=== PATIENT | female | born 1950 | race Caucasian/White ===

== ENCOUNTER 2019-10-06 10:51 | Emergency (ER) | payer MEDICARE, OTHER ==
[~2019-10-06] VITALS: Ht 152.4 cm; Wt 58.5 kg
[~2019-10-06 10:51] MED LIST: ALPR.5 PO; Xanax Xr2 MG PO
[2019-10-06] MEDS ORDERED: Primidone50 MG PO (11:47)
[2019-10-06] MEDS ORDERED: CITA20 PO (11:48)
[2019-10-06] MEDS ORDERED: THERA1 EACH PO (11:48)
[2019-10-06] MEDS ORDERED: CALCIUM 500 +1 EAC2 PO (11:48)
[2019-10-06 13:04] LABS: BASOPHILS ABSOLUTE AUTO 0.06 K/mm3 (0.00-0.23); BASOPHILS PERCENT AUTO 1 % (0-2); EOSINOPHILS PERCENT AUTO 1 % (0-6); Hematocrit 44.6 % (33.0-51.0); Hemoglobin 14.8 g/dL (11.5-16.0); IMMATURE GRAN ABSOLUTE AUTO 0.03 K/mm3 (0.00-0.10); IMMATURE GRAN PERCENT AUTO 0 % (0-1); LYMPHOCYTES ABSOLUTE AUTO 2.75 K/mm3 (0.84-5.20); LYMPHOCYTES PERCENT AUTO 29 % (21-46); MONOCYTES ABSOLUTE AUTO 0.62 K/mm3 (0.16-1.47); MONOCYTES PERCENT AUTO 6 % (4-13); Mean Corpuscular HGB 32.4 pg (26.0-34.0); Mean Corpuscular HGB Conc 33.2 g/dL (31.5-36.5); Mean Corpuscular Volume 98 fL (80-100); Mean Platelet Volume 9.7 fL (9.1-12.4); NEUTROPHILS PERCENT AUTO 63 % (41-73); Platelet Count 283 K/mm3 (150-400); RDW Coefficient Variation 12.2 % (11.7-14.2); RDW Standard Deviation 44.2 fL (35.1-46.3); Red Blood Cell Count 4.57 M/mm3 (3.80-5.20); White Blood Cell Count 9.66 K/mm3 (4.00-11.30)
[2019-10-06 13:33] LABS: Alanine Aminotransfer (ALT/SGP 21 U/L (12-78); Albumin, Blood 3.7 g/dL (3.4-5.0); Albumin/Globulin Ratio 1.1 (0.8-1.8); Alk Phos 114 U/L (50-136); Anion Gap 4 mmol/L (6-16); Aspartate Aminotrans (AST/SGOT 12 U/L (12-37); Bilirubin, Total 0.3 mg/dL (0.1-1.0); Blood Urea Nitrogen 10 mg/dL (8-24); Bun/Creatinine Ratio 17.7 (12.0-20.0); CO2, Blood 28 mmol/L (21-32); Chloride, Blood 108 mmol/L (98-108); Creatinine, Blood 0.56 mg/dL (0.40-1.00); Ethanol (Alcohol), Blood, Med <3 mg/dL; Globulin, Blood 3.4 g/dL (2.2-4.0); Glomerular Filtration Rate >60 (60-); Glucose, Blood 91 mg/dL (70-99); Magnesium, Blood 2.2 mg/dL (1.6-2.4); Potassium, Blood 3.8 mmol/L (3.5-5.5); Sodium, Blood 140 mmol/L (136-145); Total Protein, Blood 7.1 g/dL (6.4-8.2)
[2019-10-06 13:36] LABS: U Amphetamine Screen Not Detected; U Barbituate Screen Not Detected; U Benzodiazapine Screen DETECTED; U Buprenorphine Screen Not Detected; U Cannabinoids Screen DETECTED; U Cocaine Screen Not Detected; U Methadone Screen Not Detected; U Methamphetamine Screen Not Detected; U Opiates Screen Not Detected; U Oxycodone Screen Not Detected; U Phencyclidine Screen Not Detected; U Propoxyphene Screen Not Detected
[2019-10-06 14:07] LABS: Thyroid Stimulating Hormone 0.815 uIU/mL (0.360-4.800)
[2019-10-06] MEDS ORDERED: Ativan1 MG SL (14:43)
== END 2019-10-06 14:59 | disposition home or self-care (01) ==
LOC: ER 10:51
PROVIDERS: Emergency Medicine
DX: R25.1 Tremor, unspecified (principal); F41.9 Anxiety disorder, unspecified; Z88.5 Allergy status to narcotic agent; Z88.6 Allergy status to analgesic agent; Z88.8 Allergy status to other drugs, medicaments and biological substances; Z79.899 Other long term (current) drug therapy; F17.200 Nicotine dependence, unspecified, uncomplicated
CPT/HCPCS: 36415; 80053; 83735; 84443; 85025; 99283; G0480

== ENCOUNTER 2019-10-14 12:11 | Emergency (ER) | payer MEDICARE, OTHER ==
[~2019-10-14] VITALS: Ht 152.4 cm; Wt 58.5 kg
[~2019-10-14 12:11] MED LIST changes: +Ativan1 MG SL; +CALCIUM 500 +1 EAC2 PO; +CITA20 PO; +Primidone50 MG PO; +THERA1 EACH PO
[2019-10-14 14:00] LABS: Calcium, Ionized (POC) 1.11 mmol/L (1.10-1.46); Chloride (POC) 107 mmol/L (98-108); Creatinine (POC) 0.7 mg/dL (0.6-1.0); Glucose (ISTAT POC) 93 mg/dL (70-99); Hemoglobin (POC) 13.3 g/dL (12.0-16.0); Potassium (POC) 3.3 mmol/L (3.5-5.5); Sodium (POC) 142 mmol/L (135-148); Total CO2 (POC) 27 mmol/L (21-32)
== END 2019-10-14 14:22 | disposition home or self-care (01) ==
LOC: ER 12:11
PROVIDERS: Emergency Medicine
DX: G25.1 Drug-induced tremor (principal); T42.4X5A Adverse effect of benzodiazepines, initial encounter; F41.0 Panic disorder [episodic paroxysmal anxiety]; F17.200 Nicotine dependence, unspecified, uncomplicated; Z88.6 Allergy status to analgesic agent; Z88.5 Allergy status to narcotic agent; Z88.8 Allergy status to other drugs, medicaments and biological substances; Z79.899 Other long term (current) drug therapy
CPT/HCPCS: 80047; 85014; 96374; 99284-25; J3360; J7030

== ENCOUNTER → 2020-01-22 | Outpatient (CLI) | payer MEDICARE, OTHER ==
[2020-01-22 15:05] LABS: Blood Urea Nitrogen 10 mg/dL (8-24); Creatinine, Blood 0.65 mg/dL (0.40-1.00); Glomerular Filtration Rate >60 (60-)
== END | disposition home or self-care (01) ==
LOC: LAB SHORT 13:36 → LAB 13:36
PROVIDERS: Hospitalist
DX: R25.1 Tremor, unspecified (principal)
CPT/HCPCS: 82565; 84520

== ENCOUNTER 2020-11-13 08:31 | Emergency (ER) | payer MEDICARE ==
[~2020-11-13] VITALS: Ht 152.4 cm; Wt 63.5 kg
[2020-11-13] MEDS ORDERED: ESCI10 PO (08:44)
[2020-11-13 10:10] LABS: BASOPHILS ABSOLUTE AUTO 0.09 K/mm3 (0.00-0.23); BASOPHILS PERCENT AUTO 1 % (0-2); EOSINOPHILS ABSOLUTE AUTO 0.44 K/mm3 (0.00-0.68); EOSINOPHILS PERCENT AUTO 5 % (0-6); Hematocrit 43.7 % (33.0-51.0); Hemoglobin 14.6 g/dL (11.5-16.0); IMMATURE GRAN ABSOLUTE AUTO 0.01 K/mm3 (0.00-0.10); IMMATURE GRAN PERCENT AUTO 0 % (0-1); LYMPHOCYTES ABSOLUTE AUTO 2.14 K/mm3 (0.84-5.20); LYMPHOCYTES PERCENT AUTO 26 % (21-46); MONOCYTES ABSOLUTE AUTO 0.51 K/mm3 (0.16-1.47); MONOCYTES PERCENT AUTO 6 % (4-13); Mean Corpuscular HGB 33.6 pg (26.0-34.0); Mean Corpuscular HGB Conc 33.4 g/dL (31.5-36.5); Mean Corpuscular Volume 101 fL (80-100); Mean Platelet Volume 9.3 fL (9.1-12.4); NEUTROPHILS PERCENT AUTO 61 % (41-73); Platelet Count 238 K/mm3 (150-400); RDW Coefficient Variation 12.5 % (11.7-14.2); Red Blood Cell Count 4.35 M/mm3 (3.80-5.20); White Blood Cell Count 8.19 K/mm3 (4.00-11.30)
[2020-11-13 10:29] LABS: Alanine Aminotransfer (ALT/SGP 24 U/L (12-78); Albumin, Blood 3.7 g/dL (3.4-5.0); Albumin/Globulin Ratio 1.2 (0.8-1.8); Alk Phos 95 U/L (50-136); Anion Gap 2 mmol/L (6-16); Aspartate Aminotrans (AST/SGOT 14 U/L (12-37); Bilirubin, Total 0.3 mg/dL (0.1-1.0); Blood Urea Nitrogen 9 mg/dL (8-24); Bun/Creatinine Ratio 13.6 (12.0-20.0); CO2, Blood 30 mmol/L (21-32); Calcium, Blood 8.8 mg/dL (8.5-10.1); Chloride, Blood 111 mmol/L (98-108); Creatinine, Blood 0.66 mg/dL (0.40-1.00); Globulin, Blood 3.2 g/dL (2.2-4.0); Glomerular Filtration Rate >60 (60-); Glucose, Blood 111 mg/dL (70-99); Potassium, Blood 4.2 mmol/L (3.5-5.5); Sodium, Blood 143 mmol/L (136-145); Total Protein, Blood 6.9 g/dL (6.4-8.2)
[2020-11-13 10:32] LABS: Thyroid Stimulating Hormone 0.872 uIU/mL (0.360-4.800)
== END 2020-11-13 11:37 | disposition home or self-care (01) ==
LOC: ER 08:31
PROVIDERS: Emergency Medicine
DX: R25.1 Tremor, unspecified (principal); F41.9 Anxiety disorder, unspecified; F17.210 Nicotine dependence, cigarettes, uncomplicated; Z79.899 Other long term (current) drug therapy; Z88.5 Allergy status to narcotic agent; Z88.8 Allergy status to other drugs, medicaments and biological substances
CPT/HCPCS: 36415; 80053; 84443; 85025; 96374; 96376; 99283-25; J2060

== ENCOUNTER 2020-11-26 08:07 | Emergency (ER) | payer MEDICARE ==
[~2020-11-26] VITALS: Ht 154.9 cm; Wt 61.2 kg
[~2020-11-26 08:07] MED LIST changes: +ESCI10 PO
[2020-11-26 09:27] LABS: BASOPHILS PERCENT AUTO 1 % (0-2); EOSINOPHILS ABSOLUTE AUTO 0.51 K/mm3 (0.00-0.68); EOSINOPHILS PERCENT AUTO 5 % (0-6); Hematocrit 44.8 % (33.0-51.0); IMMATURE GRAN ABSOLUTE AUTO 0.04 K/mm3 (0.00-0.10); IMMATURE GRAN PERCENT AUTO 0 % (0-1); LYMPHOCYTES ABSOLUTE AUTO 2.58 K/mm3 (0.84-5.20); LYMPHOCYTES PERCENT AUTO 26 % (21-46); MONOCYTES ABSOLUTE AUTO 0.52 K/mm3 (0.16-1.47); MONOCYTES PERCENT AUTO 5 % (4-13); Mean Corpuscular HGB 33.3 pg (26.0-34.0); Mean Corpuscular HGB Conc 33.5 g/dL (31.5-36.5); Mean Corpuscular Volume 99 fL (80-100); Mean Platelet Volume 9.6 fL (9.1-12.4); NEUTROPHILS PERCENT AUTO 62 % (41-73); Platelet Count 256 K/mm3 (150-400); RDW Coefficient Variation 12.4 % (11.7-14.2); RDW Standard Deviation 46.1 fL (35.1-46.3); Red Blood Cell Count 4.51 M/mm3 (3.80-5.20); White Blood Cell Count 9.85 K/mm3 (4.00-11.30)
[2020-11-26 09:48] LABS: Alanine Aminotransfer (ALT/SGP 27 U/L (12-78); Albumin, Blood 3.6 g/dL (3.4-5.0); Alk Phos 91 U/L (50-136); Anion Gap 6 mmol/L (6-16); Aspartate Aminotrans (AST/SGOT 22 U/L (12-37); Bilirubin, Total 0.4 mg/dL (0.1-1.0); Blood Urea Nitrogen 12 mg/dL (8-24); Bun/Creatinine Ratio 19.3 (12.0-20.0); CO2, Blood 27 mmol/L (21-32); Chloride, Blood 111 mmol/L (98-108); Creatinine, Blood 0.62 mg/dL (0.40-1.00); Globulin, Blood 3.5 g/dL (2.2-4.0); Glomerular Filtration Rate >60 (60-); Glucose, Blood 124 mg/dL (70-99); Potassium, Blood 4.2 mmol/L (3.5-5.5); Sodium, Blood 144 mmol/L (136-145); Total Protein, Blood 7.1 g/dL (6.4-8.2); Troponin I <0.015 ng/mL (0.000-0.040)
[2020-11-26] MEDS ORDERED: ALBU90OI INH (10:38)
== END 2020-11-26 11:49 | disposition home or self-care (01) ==
LOC: ER 08:07
PROVIDERS: Emergency Medicine
DX: G25.0 Essential tremor (principal); Z88.8 Allergy status to other drugs, medicaments and biological substances; Z88.5 Allergy status to narcotic agent; Z79.899 Other long term (current) drug therapy; F17.200 Nicotine dependence, unspecified, uncomplicated
CPT/HCPCS: 36415; 80053; 84484; 85025; 93005; 93010; 96372-59; 96374; 99284-25; J2060

== ENCOUNTER → 2022-05-08 | Outpatient (CLI) | payer MEDICARE, OTHER ==
[~2022-05-08] MED LIST changes: +ALBU90OI INH
== END | disposition home or self-care (01) ==
LOC: LAB SHORT 15:00 → LAB 15:00
DX: R30.0 Dysuria (principal)
CPT/HCPCS: 87086

== ENCOUNTER 2022-08-11 12:29 | Emergency (ER) | payer MEDICARE ==
[~2022-08-11] VITALS: Ht 152.4 cm; Wt 72.1 kg
== END 2022-08-11 14:59 | disposition home or self-care (01) ==
LOC: ER 12:29
DX: R10.10 Upper abdominal pain, unspecified (principal); K92.1 Melena; F17.200 Nicotine dependence, unspecified, uncomplicated; Z88.5 Allergy status to narcotic agent; Z88.8 Allergy status to other drugs, medicaments and biological substances; Z79.899 Other long term (current) drug therapy
CPT/HCPCS: A9270

== ENCOUNTER 2022-10-30 09:12 | Day surgery (SDC) | payer MEDICARE ==
[~2022-10-30] VITALS: Ht 152.4 cm; Wt 70.3 kg
[~2022-10-30 09:12] MED LIST changes: +CLON1 PO
[2022-10-30] MEDS ORDERED: ESCI10 PO (09:59)
[2022-10-30] MEDS ORDERED: ESTRADIOL1 EAC2 TOP (09:59)
[2022-10-30] MEDS ORDERED: OMEP20ER PO (10:00)
[2022-10-30] MEDS ORDERED: INDERAL XL120 MG PO (10:01)
[2022-10-30] MEDS ORDERED: BUDE.25 INH (10:02)
--- NOTE | 2022-10-30 11:12 | NUR ---
10/30/22 1112 Emilee Robb History, Chart, Medications and Allergies reviewed before start of procedure.DR DELCID PROVIDES ANESTHESIA, SEE RECORDS
--- NOTE | 2022-10-30 12:48 | NUR ---
PT AWAKE A&OX4, NO NAUSEA, NO NEW PAIN POST PROCEDURE. PT UP TO BATHROOM WITH ASSISTANCE. VSS, PT MEETS DISCHARGE CRITERIA. Discharge instructions reviewed with patient. Patient verbalizes understanding. Copy given to patient to take home. Discharged via wheelchair to private car for ride home.
== END 2022-10-30 12:45 | disposition home or self-care (01) ==
LOC: ORSCMMR 09:12 → ORD 10:30 → ORSCMMR 12:45
PROVIDERS: Surgery
PROC: 0DB78ZX Excision of Stomach, Pylorus, Via Natural or Artificial Opening Endoscopic, Diagnostic (ICD-10-PCS; principal; 2022-10-30 10:30)
PROC: 0DBP8ZX Excision of Rectum, Via Natural or Artificial Opening Endoscopic, Diagnostic (ICD-10-PCS; principal; 2022-10-30 10:30)
PROC: 0DB48ZX Excision of Esophagogastric Junction, Via Natural or Artificial Opening Endoscopic, Diagnostic (ICD-10-PCS; principal; 2022-10-30 10:30)
DX: K92.1 Melena (principal); R10.13 Epigastric pain; Z86.010 Personal history of colon polyps; K21.9 Gastro-esophageal reflux disease without esophagitis; K29.70 Gastritis, unspecified, without bleeding; K62.1 Rectal polyp; K44.9 Diaphragmatic hernia without obstruction or gangrene; Z87.891 Personal history of nicotine dependence; J44.9 Chronic obstructive pulmonary disease, unspecified; Z99.81 Dependence on supplemental oxygen; F41.8 Other specified anxiety disorders; Z79.899 Other long term (current) drug therapy
CPT/HCPCS: 88305; 88342; J2704; J7120

== ENCOUNTER 2023-04-27 06:12 | Inpatient (IN) | payer MEDICARE ==
[~2023-04-27] VITALS: Ht 154.9 cm; Wt 77.2 kg
[2023-04-27] VITALS (46 sets, daily range): BP systolic 81–242; BP diastolic 41–216
[~2023-04-27 06:12] MED LIST changes: +BUDE.25 INH; +ESTRADIOL1 EAC2 TOP; +IBUP200 PO; +INDERAL XL120 MG PO; +OMEP20ER PO; +ONDA4 PO
[2023-04-27] MEDS ORDERED: CLONAZEPAM0.5 MG PO (06:35)
[2023-04-27] MEDS ORDERED: SYMBICORT 16010.2 GM (06:39)
[2023-04-27] MEDS ORDERED: SLEEP PO (06:40)
[2023-04-27] MEDS ORDERED: [UNRECOGNIZED DRUG - OTHER] PO (06:40)
[2023-04-27] MEDS ORDERED: METR500 PO (06:57)
[2023-04-27] MEDS ORDERED: NEOM500 PO (06:58)
[2023-04-27 07:30] LABS: BASOPHILS ABSOLUTE AUTO 0.06 K/mm3 (0.00-0.23); BASOPHILS PERCENT AUTO 1 % (0-2); EOSINOPHILS ABSOLUTE AUTO 0.41 K/mm3 (0.00-0.68); EOSINOPHILS PERCENT AUTO 5 % (0-6); Hematocrit 38.4 % (33.0-51.0); Hemoglobin 12.9 g/dL (11.5-16.0); IMMATURE GRAN ABSOLUTE AUTO 0.06 K/mm3 (0.00-0.10); IMMATURE GRAN PERCENT AUTO 1 % (0-1); LYMPHOCYTES ABSOLUTE AUTO 2.57 K/mm3 (0.84-5.20); LYMPHOCYTES PERCENT AUTO 29 % (21-46); MONOCYTES PERCENT AUTO 7 % (4-13); Mean Corpuscular HGB 32.7 pg (26.0-34.0); Mean Corpuscular HGB Conc 33.6 g/dL (31.5-36.5); Mean Corpuscular Volume 98 fL (80-100); Mean Platelet Volume 9.6 fL (9.1-12.4); NEUTROPHILS ABSOLUTE AUTO 5.25 K/mm3 (1.96-9.15); NEUTROPHILS PERCENT AUTO 59 % (41-73); Platelet Count 218 K/mm3 (150-400); RDW Coefficient Variation 12.1 % (11.7-14.2); RDW Standard Deviation 43.4 fL (35.1-46.3); Red Blood Cell Count 3.94 M/mm3 (3.80-5.20); White Blood Cell Count 8.95 K/mm3 (4.00-11.30)
--- NOTE | 2023-04-27 12:40 | NUR ---
DR REYES DID BOLUS AND ASKED ME TO START EVERY 3 MIN BLOOD PRESSURE
--- NOTE | 2023-04-27 13:43 | NUR ---
PACU DISCHARGE PT IS ALERT AND COMMUNICATING TO STAFF. PT KNOWS WHERE SHE IS BUT IS CONFUSED ABOUT SOME OF HER MEDICAL EQUIPMENT NEEDING FREQUENT REMINDERS ABOUT HER CATHETER AND MONITOR CORDS. PT'S BP SOFT AFTER EPIDURAL INITIATED BUT RESOLCVED WNL AFTER ADDITIONAL 500ML BOLUS. PT RECIVED 0.25MG DILAUDID X2 FOR BREAKTHROUGH PAIN. PT IS ON 3LNC W SPO2 >92%. PT HAS DESTINI DRAIN OVER OP SITE W TWO DIME SIZE SPOTS OF BLEEDING ON THE DRESSING. PT HAS CRAWFORD CATHETER THAT IS PATENT AND DRAINING CLEAR MARLY URINE. PT DENIES PAIN AT REST BUT HAS DOES EXPERIENCE SOME PAIN W MOVEMENT. EPIDURAL BASAL RATE CHANGED FROM 6ML/HR TO 8ML/HR PER DR. REYES. PT REPORTING SENSATION TO PEE DESPITE CRAWFORD SO BLADDER SCAN WAS DONE AND SHOWED THAT THE PT'S BLADDER WAS EMPTY. REPORT GIVEN TO VIJI ARAUJO ON SURGICAL FLOOR. PT TO BE TRANSFERED NOW.
--- NOTE | 2023-04-27 14:03 | NUR ---
ARRIVAL TO 229 FROM PACU PT ARRIVED FROM PACU ON HER BED, SKIN CHECKED BY 2 RN CHECK, EPIDURAL LINE VERIFIED INTACT WITH NO KINKS NOTED AND NO ABNORMAL DISCHARGE AROUND INSERTION SITE, VERIFIED PUMP SETTINGS AGAINST ORDERS. PT DENIES HAVING ANY IGNITION SOURCES AND REPORTS SHE QUIT SMOKING LAST YEAR. EDUCATED ON HOURLY EPIDURAL ASSESSMENT UP UNTIL 0758 TOMORROW (04/28/23) AT WHICH TIME IT WILL GO TO Q4 HOUR CHECKS.
--- NOTE | 2023-04-27 19:37 | NUR ---
SHIFT SUMMARY POD0 SIG RESECTION, A/O X3 AND FORGETFUL OF SITUATION/PLACE R/T ANESTHESIA, PER HER DAUGHTER SHE IS NORMALLY A/OX4, EPIDURAL IN PLACE AND RUNNING SMOOTHLY, ABLE TO USE HANDLE FOR BOLUS DOSE ON EPIDURAL FOR ADDITIONAL PAIN MANAGEMENT. DAUGHTER IS STAYING THE NIGHT AND IS HELPING WITH REDIRECTING HER MOM. DISCUSSED IGNITION SOURCES WITH THE PATIENT WHO REPORTS THAT SHE IS A FORMER SMOKER AND SUCH HAS ELECTED TO NOT BRING ANY LIGHTERS, SPARK STONES, FLINT AND TINDER, ELECTRIC SPARKER, OR ANY OTHER DEVICES THAT COULD PRODUCE A SPARK. DISCUSSED HOW THERE IS O2 IN HER ROOM AND CURRENTLY IN USE AND WHILE IT IS NOT FLAMMABLE, IT IS AN ACCELERANT THAT COULD MAKE A SPARK FEEL/LOOK EXPLOSIVE. CALL LIGHT IN REACH, ALL NEEDS MET, REPORT GIVEN TO SUELLEN ARAUJO.
--- NOTE | 2023-04-27 23:11 | NUR ---
HOSPITALIST DR STUBBS CONTACTED ABOUT THIS PATIENTS INCREASING AGITATION, RISK OF EPIDURAL REMOVAL, AND CRAWFORD INCREASING THE PATIENTS AGITATION. INSTRUCTED TO PULL THE CRAWFORD AND TO PUT IN A HOSPITALIST CONSULT FOR AGITATION. CALL PLACED TO DR. GRANADO, ORDER OBTAINED FOR HALDOL AND ATIVAN ONE TIME DOSE, THEN INSTRUCTED TO CALL DR THOMPSON TO FINISH THE CONSULT.
[2023-04-28] VITALS (35 sets, daily range): BP systolic 79–128; BP diastolic 53–75
--- NOTE | 2023-04-28 04:13 | NUR ---
HOSPITALIST AND ANESTHESIOLOGIST CALL PLACED TO HOSPITALIST D/T PTS ONGOING AGITATION, SUSPECTED EPIDURAL PROBLEMS, AND CONCERN FOR FURTHER COMPLICATIONS. DR. THOMPSON ASKED THAT THE ANESTHESIOLOGIST BE CALLED AND OBTAIN A RECCOMENDATION. DR. REYES CALLED AND INFORMED ABOUT THE CURRENT SITUATION, SHE STATED THAT SHE WOULD BE HEADING IN AND TO ASSESS EPIDURAL. DR THOMPSON INFORMED OF THIS. OBTAINED NO NEW ORDERS AT THIS TIME.
[2023-04-28 04:25] LABS: BASOPHILS ABSOLUTE AUTO 0.04 K/mm3 (0.00-0.23); BASOPHILS PERCENT AUTO 0 % (0-2); EOSINOPHILS ABSOLUTE AUTO 0.02 K/mm3 (0.00-0.68); EOSINOPHILS PERCENT AUTO 0 % (0-6); Hematocrit 34.8 % (33.0-51.0); Hemoglobin 11.5 g/dL (11.5-16.0); IMMATURE GRAN ABSOLUTE AUTO 0.03 K/mm3 (0.00-0.10); IMMATURE GRAN PERCENT AUTO 0 % (0-1); LYMPHOCYTES ABSOLUTE AUTO 2.18 K/mm3 (0.84-5.20); LYMPHOCYTES PERCENT AUTO 22 % (21-46); MONOCYTES ABSOLUTE AUTO 0.69 K/mm3 (0.16-1.47); MONOCYTES PERCENT AUTO 7 % (4-13); Mean Corpuscular HGB 32.5 pg (26.0-34.0); Mean Corpuscular Volume 98 fL (80-100); Mean Platelet Volume 9.8 fL (9.1-12.4); NEUTROPHILS ABSOLUTE AUTO 7.16 K/mm3 (1.96-9.15); NEUTROPHILS PERCENT AUTO 71 % (41-73); Platelet Count 203 K/mm3 (150-400); RDW Coefficient Variation 12.2 % (11.7-14.2); RDW Standard Deviation 44.4 fL (35.1-46.3); Red Blood Cell Count 3.54 M/mm3 (3.80-5.20); White Blood Cell Count 10.12 K/mm3 (4.00-11.30)
[2023-04-28 04:49] LABS: Bun/Creatinine Ratio 10.5 (12.0-20.0); Creatinine, Blood 0.67 mg/dL (0.40-1.00); Potassium, Blood 3.7 mmol/L (3.5-5.5)
--- NOTE | 2023-04-28 05:39 | NUR ---
ANESTHESIOLOGIST DR. REYES CAME TO ASSESS THE PATIENT AND TROUBLE SHOOT THE ISSUES THAT THE PATIENT HAD BEEN EXPERIENCING THROUGHOUT THE NIGHT. THE PATIENT WAS GIVEN A BOLUS THROUGH THE EPIDURAL, VS WERE MONITORED. SEE DR. MCRCACKEN NOTE IN THE PAPER CHART. DOSING WAS CHANGED FOR THE EPIDURAL. INSTRUCTED TO LET THE PT REST MUCH POSSIBLE UNTIL NOON, STRAIT CATH THE PATIENT IF SHE CONTINUES TO EXPERIENCE URGENCY, AND FOR THE NEXT SHIFT TO HELP THE PATIENT GET OOB FOR FREQUENTLY T/O THE DAY IN HOPES OF HELPING HER SLEEP TONIGHT.
--- NOTE | 2023-04-28 05:55 | NUR ---
SHIFT SUMMARY POD1 SIGMOID COLECTOMY. DESTINI IS MODERATELY SATURATED WITH SANGUINEOUS DRAINAGE, REMAINS COMPRESSED. VSS, ANESTHESIOLOGIST REQUESTS PT TO REMAIN ON Q30 VITAL SIGNS UNTIL 0900, AND HOURLY VITALS UNTIL 1200. SEE PREVIOUS NOTES FOR UPDATES T/O THE NIGHT. DR. MCCRACKEN NOTE IS IN THE PTS PAPER CHART. PT HAS BEEN ABLE TO AMBULATE OOB MULTIPLE TIMES TO THE [facility] WITH 2P MOD ASSIST. EXTREME URINARY URGENCY NOTED, SEE PREVIOUS NOTE FOR ORDERS FROM DR. REYES. EPIDURAL REMAINS APPROPRIATELY PLACED AND COMPRESSED. PT MEDICATED ONCE FOR NAUSEA, NO EMESIS NOTED. NO FLATTUS NOTED. PT TOLLERATED MINIMAL ICE CHIPS T/O THE NIGHT. PT HAS BEEN RESTING WELL SINCE EPIDURAL DOSE ADJUSTMENT. PLAN TO MANAGE PTS PAIN T/O THE DAY. NO IGNITION SOURCE NOTED.
--- NOTE | 2023-04-28 06:38 | NUR ---
STRAIT CATH ATTEMPTED TO CATH THE PATIENT PER ANESTHESIOLOGISTS ORDERS, UNSUCCESSFUL D/T PT BEING UNABLE TO FOLLOW DIRECTIONS OR UNDERSTAND THE SITUATION AT THIS TIME. PT WAS KICKING LEGS AND FLAILING ARMS. PT STILL ACTIVELY TRYING TO GET OOB EVERY FEW MINUTES. PLAN TO REPORT TO DAY SHIFT.
--- NOTE | 2023-04-28 16:56 | NUR ---
DR CLARK IN TO SEE PT.
--- NOTE | 2023-04-28 17:10 | NUR ---
SUMMARY PT VERY AGITATED AND CONFUSED AT BEGINNING OF SHIFT. HAS REQUIRED 1:1 OBSERVATION BY STAFF T/O DAY. PT ANSWERS SOME QUESTIONS APPROPRIATELY BUT IS IMPULSIVE WHEN WAKES AND HAS TO VOID, DIFFICULT TO REDIRECT AT TIMES. NEEDS ASSISTANCE WITH AMBULATION AND MANAGING LINES. PAIN APPEARS TO BE ADEQUATELY CONTROLLED WITH EPIDURAL. HAS SLEPT OFF AND ON T/O DAY. MOD AMOUNT OF SANGUINEOUS DRAINAGE NOTED TO DESTINI. DESTINI REMAINS COMPRESSED AND INTACT. DAUGHTER HAS BEEN IN AND OUT DURING DAY.
--- NOTE | 2023-04-28 17:31 | NUR ---
FIRE SAFETY DISCUSSED FIRE SAFETY WITH PT, STATED HAD NO MATCHES/LIGHTERS, ETC. ALSO DISCUSSED WITH PT'S DAUGHTER WHO VERBALIZED UNDERSTANDING AND DENIED HAVING ANY LIGHTERS/MATCHES, ETC IN HOSPITAL.
[2023-04-29] VITALS (8 sets, daily range): BP systolic 101–133; BP diastolic 56–83
[2023-04-29 04:36] LABS: Base Excess Venous 8.1 mmol/L; Bicarbonate Venous 30.7 mmol/L (24.0-30.0); PCO2 Venous 54.9 mmHg (38-42); pH Blood Venous 7.39 (7.34-7.37)
[2023-04-29 05:16] LABS: BASOPHILS ABSOLUTE AUTO 0.04 K/mm3 (0.00-0.23); BASOPHILS PERCENT AUTO 1 % (0-2); EOSINOPHILS ABSOLUTE AUTO 0.28 K/mm3 (0.00-0.68); EOSINOPHILS PERCENT AUTO 4 % (0-6); Hematocrit 32.4 % (33.0-51.0); Hemoglobin 10.6 g/dL (11.5-16.0); IMMATURE GRAN ABSOLUTE AUTO 0.02 K/mm3 (0.00-0.10); IMMATURE GRAN PERCENT AUTO 0 % (0-1); LYMPHOCYTES ABSOLUTE AUTO 1.96 K/mm3 (0.84-5.20); LYMPHOCYTES PERCENT AUTO 24 % (21-46); MONOCYTES ABSOLUTE AUTO 0.65 K/mm3 (0.16-1.47); MONOCYTES PERCENT AUTO 8 % (4-13); Mean Corpuscular HGB 32.8 pg (26.0-34.0); Mean Corpuscular HGB Conc 32.7 g/dL (31.5-36.5); Mean Corpuscular Volume 100 fL (80-100); Mean Platelet Volume 10.4 fL (9.1-12.4); NEUTROPHILS ABSOLUTE AUTO 5.12 K/mm3 (1.96-9.15); NEUTROPHILS PERCENT AUTO 63 % (41-73); Platelet Count 164 K/mm3 (150-400); RDW Coefficient Variation 12.3 % (11.7-14.2); RDW Standard Deviation 44.9 fL (35.1-46.3); Red Blood Cell Count 3.23 M/mm3 (3.80-5.20); White Blood Cell Count 8.07 K/mm3 (4.00-11.30)
--- NOTE | 2023-04-29 05:22 | NUR ---
SHIFT SUMMARY NO ACUTE CHANGES TO REPORT OVERNIGHT. PT HAS 1:1 SITTER T/O THE NIGHT, PT STILL IMPULSIVE AND WILL ATTEMPT OOB W/O ASSISTANCE, PT HIGH FALL RISK WITH MULTIPLE LINES. MENTATION IS CLEARER, PT ABLE TO ANSWER MY QUESTIONS APPROPRIATELY, KNOWS SELF, MONTH, YEAR, PRESIDENT, PLACE. PT HAS BEEN UP AMBULATING TO THE [facility] [place] [facility] WITH 1 PA. VITALS ARE STABLE. PT REPORTS SOME PAIN WHEN AMBULATING OOB, BUT SETTLES WHEN AT REST. FENTANYL EDPIDURAL IN PLACE, SITE WNL. BED IN LOWEST POSITION, CALL LIGHT WITHIN REACH. FIRE RISK ASSESSED THIS SHIFT. PT EDUCATED ON FIRE RISKS AND IGNITION SOURCES. PT DENIES HAVING IGNITION SOURCES.
[2023-04-29 06:03] LABS: Bun/Creatinine Ratio 9.9 (12.0-20.0); Calcium, Blood 7.9 mg/dL (8.5-10.1); Creatinine, Blood 0.6 mg/dL (0.40-1.00); Free Thyroxine 1.22 ng/dL (0.70-1.60); Magnesium, Blood 1.7 mg/dL (1.6-2.4); Phosphorus, Blood 1.9 mg/dL (2.5-4.9); Potassium, Blood 3.7 mmol/L (3.5-5.5); Thyroid Stimulating Hormone 0.257 uIU/mL (0.360-4.800)
--- NOTE | 2023-04-29 07:33 | NUR ---
DR CLARK IN TO SEE PT.
--- NOTE | 2023-04-29 08:45 | NUR ---
FIRE SAFETY PT APPEARS MORE CLEAR THIS MORNING. EDUCATED ON FIRE SAFETY. VERBALIZED UNDERSTANDING AND DENIED POSSESSION OF ANY CIGARETTES, LIGHTERS, MATCHES, ETC.
--- NOTE | 2023-04-29 12:06 | NUR ---
PT'S DAUGHTER BEDSIDE.
[2023-04-29 16:15] LABS: Base Excess Venous 8.8 mmol/L; Bicarbonate Venous 30.8 mmol/L (24.0-30.0); PCO2 Venous 55.7 mmHg (38-42); pH Blood Venous 7.39 (7.34-7.37)
[2023-04-29 16:48] LABS: Source, Urine Straight Cath
[2023-04-29 16:56] LABS: Appearance, Urine Hazy (Clear); Bilirubin, Urine Neg (Neg); Blood, Urine 5+ (Neg); Color, Urine Amber (P-Yellow); Glucose Qualitative, Urine Neg (Neg); Ketones, Urine 2+ (Neg); Leukocyte Esterase, Urine 1+ (Neg); Nitrite, Urine Neg (Neg); Protein, Urine 2+ (Neg); Specific Gravity, Urine 1.015 (1.003-1.022); Urobilinogen, Urine NORM (Normal)
[2023-04-29 17:12] LABS: Bacteria Few /hpf; Red Blood Cells, Urine 25-50 /hpf (0-2); Squamous Epithelial Cells Few /hpf (Few)
--- NOTE | 2023-04-29 17:56 | NUR ---
SUMMARY PT APPEARS MORE CLEAR THIS SHIFT BUT STILL IMPULSIVE AND DIFFICULT TO REDIRECT AT TIMES. PT VOIDED FREQUENTLY T/O DAY, 100-200 MLS AT A TIME. THIS AFTERNOON, BECAME HARDER TO REDIRECT, INSISTING NEEDED TO VOID BUT DID NOT GO ON TWO ATTEMPTS. BS DID NOT SHOW ANY RETAINED URINE BUT CALLED DR OKEEFE AND OBTAINED ORDER FOR STRAIGHT CATH W/ UA. PT TOLERATED STRAIGHT CATH FAIRLY WELL AND BLADDER WAS EMPTIED OF 400 ML MARLY, HAZY URINE. PT NOW RESTING WITH EYES CLOSED. SITTER BEDSIDE. BED ALARM ON. ORDERS OBTAINED FROM DR CLARK TO HOLD LOVENOX TOMORROW (04/30/23) IN ANTICIPATION OF DISCONTINUING EPIDURAL.
--- NOTE | 2023-04-29 23:25 | NUR ---
EPIDURAL EVENING HAS PROGRESSED PT NOTED TO BE MORE CONFUSED, HOWEVER NO CHANGES IN CARE OR MEDICATIONS GIVEN BY NURSE. ALEX MOISÉS REPORTS THAT SHE SAW DAUGHTER PUSH COMMAND BUTTON ON EPIDURAL 2-3X. DAUGHTER SPOKE WITH ME LAST NIGHT CONFIRMING HER AWARENESS THAT SHE IS NOT TO PUSH BUTTON FOR PT. DAUGHTER HAS NOW LEFT FOR THE EVENING. SOCK TURNER NOTIFIED AND WILL RELAY INFO TO DAYSHIFT FOR FOLLOW AND CARE. NO OTHER CHANGES IN PT STATUS NOTED AT THIS TIME.
--- NOTE | 2023-04-30 00:15 | NUR ---
REPORT GIVEN TO ALBAN TO ASSUME CARE OF PT AT THIS TIME. PT UP IN ROOM WITH TOXICOLOGY TEACHER/1:1 SITTER TO BSC. PT CONTINUES TO HAVE URGENCY AND FREQUENCY. TOXICOLOGY TEACHER TO BLADDER SCAN. RECEIVING RN AWARE AND WILL FOLLOW UP. FIRE RISK ASSESSED THIS SHIFT. PT EDUCATED ON FIRE RISK AND IGNITION SOURCES. PT DENIES HAVING IGNITION SOURCES.
--- NOTE | 2023-04-30 00:19 | NUR ---
ASSUMMED CARE OF PATIENT AT 0025, REPORT TAKEN FROM IRMA ARAUJO. JIAN CURIEL IN ROOM WITH PATIENT. BED ALARM IS ON.
[2023-04-30 03:49] VITALS: BP 131/93
--- NOTE | 2023-04-30 04:47 | NUR ---
SITTER UPDATE DISCUSSED WITH NURSING APPLICATION ASSISTANT, PATIENT IS MORE ALERT AND DIRECTABLE. DECISION TO REPLACE SITTER WITH IN ROOM CAMERA AT SHIFT CHANGE. BED ALARM/CHAIR ALARM TO BE ON AND FREQUENT ROUNDING.
[2023-04-30 05:01] LABS: Base Excess Venous 9.4 mmol/L; Bicarbonate Venous 32.4 mmol/L (24.0-30.0); PCO2 Venous 42.4 mmHg (38-42)
--- NOTE | 2023-04-30 06:04 | NUR ---
VIRTUAL LENS COATER IS NOW ACTIVATED AT 0605. VERIFIED THROUGH LENS COATER SITTER CAMERA.
[2023-04-30 07:28] VITALS: BP 138/69
--- NOTE | 2023-04-30 07:50 | NUR ---
SUMMARY PATIENT MORE ALERT AND DIRECTABLE, UP TO BSC, 1 ASSIST VOIDING WELL. EPIDURAL DRESSING REENFORCED THIS AM. NO ACUTE EVENTS THIS SHIFT. SITTER REPLACED WITH VISUAL MONITORING. BED ALARM IS ON AND CALL LIGHT IS IN REACH. REPORT GIVEN TO DAY RN.
--- NOTE | 2023-04-30 15:24 | NUR ---
SHIFT SUMMARY: POD 3 BOWEL RESECTION PATIENT IS A&OX3 BUT IS IMPULSIVE. CAMERA IS IN PLACE WELL BED ALARM. PATIENTS EPIDURAL WAS TAKEN OUT BY DOCTOR EARLIER THIS SHIFT. PAIN HAS BEEN MANAGED WITH 1 OXY PO SINCE. PATIENT ABD HAS A MIDLINE DESTINI WITH OLD BLOOD DRIED UNDERNEATH BUT IS STILL COMPRESSED AND SUCTIONING. PATIENT IS TOLERATING CLEAR LIQUIDS AT THIS TIME. DENIES NAUSEA OR VOMITING. PATIENT IS A SBA TO THE BSC AND BACK TO BED. PATIENT IS CURRENTLY LAYING IN BED WITH CALL LIGHT IN REACH.
[2023-04-30 15:28] VITALS: BP 112/62
[2023-04-30 19:40] VITALS: BP 132/61
--- NOTE | 2023-05-01 02:19 | NUR ---
[employer] TELESITTER MONITORING PT HAS SET BED ALARM OFF 3X SINCE APPROXIMATELY 44. STAFF HAS NOT BEEN NOTIFIED BY [employer] TELESITTER WHEN PT STARTS TO GET OUT OF BED. NURSING CLAIM CLINICIAN NOTIFIED. THIS RN CALLED [employer] ESITTER PHONE NUMBER TO VERIFY IF MONITOR WAS STILL ON AND WORKING. [employer] TELESITTER REPORTED THAT THE PT WAS AND IS STILL BEING MONITORED. THIS RN EXPLAINED TO TELESITTER THAT OUR STAFF NEEDS TO BE NOTIFIED IMMEDIATELY IF THE PT STARTS TO SIT UP IN BED, CLIMB OUT OF BED, OR STARTS TOUCHING LINES/CORDS. [employer] TELESITTER VERBALIZED AN UNDERSTANDING. BED ALARM IN PLACE FOR SAFETY. CALL LIGHT WITHIN REACH OF PT.
[2023-05-01 03:29] VITALS: BP 126/59
[2023-05-01 04:45] LABS: BASOPHILS ABSOLUTE AUTO 0.02 K/mm3 (0.00-0.23); BASOPHILS PERCENT AUTO 0 % (0-2); EOSINOPHILS ABSOLUTE AUTO 0.74 K/mm3 (0.00-0.68); EOSINOPHILS PERCENT AUTO 10 % (0-6); Hematocrit 32.5 % (33.0-51.0); IMMATURE GRAN ABSOLUTE AUTO 0.03 K/mm3 (0.00-0.10); IMMATURE GRAN PERCENT AUTO 0 % (0-1); LYMPHOCYTES ABSOLUTE AUTO 1.78 K/mm3 (0.84-5.20); LYMPHOCYTES PERCENT AUTO 24 % (21-46); MONOCYTES ABSOLUTE AUTO 0.52 K/mm3 (0.16-1.47); MONOCYTES PERCENT AUTO 7 % (4-13); Mean Corpuscular HGB 32.4 pg (26.0-34.0); Mean Corpuscular HGB Conc 33.8 g/dL (31.5-36.5); Mean Corpuscular Volume 96 fL (80-100); NEUTROPHILS ABSOLUTE AUTO 4.29 K/mm3 (1.96-9.15); NEUTROPHILS PERCENT AUTO 58 % (41-73); Platelet Count 206 K/mm3 (150-400); RDW Coefficient Variation 11.9 % (11.7-14.2); RDW Standard Deviation 41.2 fL (35.1-46.3); Red Blood Cell Count 3.39 M/mm3 (3.80-5.20); White Blood Cell Count 7.38 K/mm3 (4.00-11.30)
[2023-05-01 05:01] LABS: Calcium, Blood 7.8 mg/dL (8.5-10.1); Creatinine, Blood 0.54 mg/dL (0.40-1.00); Magnesium, Blood 1.7 mg/dL (1.6-2.4); Phosphorus, Blood 2.3 mg/dL (2.5-4.9); Potassium, Blood 3.5 mmol/L (3.5-5.5)
--- NOTE | 2023-05-01 05:13 | NUR ---
SHIFT SUMMARY AOX3-SELF, HOSPITAL, HAVING SURGERY, MONTH. FORGETFUL & IMPULSIVE @TIMES. SETS BED ALARM OFF FREQUENTLY GETTING UP W/O ASSIST. POD 4-BOWEL RESECTION. REPORTED 7-8/10 PAIN 2x, MEDICATED c 5MG OXYCODONE & PT ABLE TO REST COMFORTABLY. MIDLINE ABD DESTINI DRESSING c MOD DRY DRAINAGE ON BANDAGE, DRESSING COMPRESSED & GREEN LIGHT ON VAC. DENIES N/V. ACTIVE BT. DENIES PASSING FLATUS OR HAVING BM. UP 1 ASSIST TO BSC. CALL LIGHT & BED ALARM IN PLACE, WILL MONITOR.
[2023-05-01 07:21] VITALS: BP 124/70
[2023-05-01 14:37] VITALS: BP 140/60
--- NOTE | 2023-05-01 17:36 | NUR ---
PT REPORTS IMPROVEMENT IN HER ABD PAIN. SHE HAS BEEN TAKING OXYCODONE AND TYLENOL TWICE PRN THIS SHIFT.
--- NOTE | 2023-05-01 19:33 | NUR ---
PT WAS UP MULTIPLE TIMES THROUGH OUT THE SHIFT. SHE REQUIRED ASSISTANCE FROM SECONDARY SPECIAL EDUCATION TEACHER, RN, AND OTHER STAFF TO BE REDIRECTED TO SIT IN THE CHAIR OR ON THE BED FOR SAFETY, SHE IS A HIGH FALL RISK DUE TO IMPULSIVITY. EACH TIME, THE REMOTE MONITORING SYSTEM FAILED TO CALL TO ALERT THE RN. CHARGE NURSE CALLED THE REMOTE MONITORING COMPANY TO REITERATE THE NEED FOR PROMPT ALERTS IF A PT IS STANDING UP OUT OF BED TO ENSURE PT SAFETY.
[2023-05-01 20:56] VITALS: BP 139/80
--- NOTE | 2023-05-01 22:49 | NUR ---
REMOTE MONITORING DC ROUGHLY AROUND 2036 REMOTE MONITORING DC'D SINCE IN PERSON SITTER IN RM. PER REPORT REMOTE VIDEO MONITORING STAFF HADNT NOTIFIED DAY SHIFT ALL DAY OF PT GETTING OOB W/O HELP & AT BEGINNING OF JOURNEYMAN SHEET METAL WORKER HAD ONLY NOTIFIED 1x OF PT ATTEMPTING TO GET OOB W/O HELP, WHEN BED OR CHAIR ALARM HAD GONE OFF 10+ TIMES. NURSING MASONRY SUPERVISOR NORMA AWARE OF CHANGES MADE.
[2023-05-02 00:39] VITALS: BP 126/59
--- NOTE | 2023-05-02 00:40 | NUR ---
DESTINI REMOVED PT UP TO BATHROOM, PULLED DESTINI LINE FROM DRESSING. DESTINI DRESSING REMOVED, INCISION CLEANED W/ WOUND CLEANSER, PATTED DRY, AND COVERED W/ MEDIPORE DRESSING. INCISION ASSESSMENT, NOTICABLE LARGE BLISTERS TO UMBILICAL OPENING. TONO ELLIOTT NOTIFIED AND PICS OBTAINED FOR REFERENCE.
[2023-05-02 05:37] VITALS: BP 144/64
[2023-05-02 07:44] VITALS: BP 128/51
--- NOTE | 2023-05-02 08:03 | NUR ---
SHIFT SUMMARY POD 6 FOR BOWEL RESECT, MEDIPORE DRESSING C/D/I, COVERED W/ ABD BINDER. PCP INFORMED OF UMBILICAL BLISTERS DURING MORNING ROUNDS. PT EXPERIENCED CONFUSION T/O NIGHT REQUIRING SITTER ASSISTANCE. PT ASSISTED TO BATHROOM AND CONTINUED REDIRECTING BACK TO BED/ ROOM, WHEN CLIMBING OUT OF BED W/OUT ASSISTANCE. DAUGHTER STAYED IN ROOM W/ PT ALTHOUGH OUTSIDE MANY TIMES T/O NIGHT. O2 TITATRATED TO 1L AND MAINTAINED SATS AT 98%. NO ACUTE CHANGES THIS SHIFT. CALL LIGHT W/IN REACH ALTHOUGH PT UNABLE TO REMEMBER TO USE IT. REPORT GIVEN TO ONCOMING STAFF.
[2023-05-02 10:23] LABS: BASOPHILS ABSOLUTE AUTO 0.02 K/mm3 (0.00-0.23); BASOPHILS PERCENT AUTO 0 % (0-2); EOSINOPHILS PERCENT AUTO 7 % (0-6); Hematocrit 35.2 % (33.0-51.0); IMMATURE GRAN ABSOLUTE AUTO 0.02 K/mm3 (0.00-0.10); IMMATURE GRAN PERCENT AUTO 0 % (0-1); LYMPHOCYTES ABSOLUTE AUTO 1.54 K/mm3 (0.84-5.20); LYMPHOCYTES PERCENT AUTO 19 % (21-46); MONOCYTES ABSOLUTE AUTO 0.55 K/mm3 (0.16-1.47); MONOCYTES PERCENT AUTO 7 % (4-13); Mean Corpuscular HGB 32.4 pg (26.0-34.0); Mean Corpuscular HGB Conc 34.1 g/dL (31.5-36.5); Mean Corpuscular Volume 95 fL (80-100); Mean Platelet Volume 9.6 fL (9.1-12.4); NEUTROPHILS ABSOLUTE AUTO 5.34 K/mm3 (1.96-9.15); NEUTROPHILS PERCENT AUTO 66 % (41-73); Platelet Count 250 K/mm3 (150-400); RDW Coefficient Variation 11.9 % (11.7-14.2); RDW Standard Deviation 41.4 fL (35.1-46.3); White Blood Cell Count 8.07 K/mm3 (4.00-11.30)
[2023-05-02 10:45] LABS: Albumin, Blood 2.7 g/dL (3.4-5.0); Anion Gap 6 mmol/L (6-16); Blood Urea Nitrogen 5 mg/dL (8-24); CO2, Blood 33 mmol/L (21-32); Calcium, Blood 8.3 mg/dL (8.5-10.1); Chloride, Blood 106 mmol/L (98-108); Creatinine, Blood 0.56 mg/dL (0.40-1.00); Glomerular Filtration Rate 96 (60-); Glucose, Blood 129 mg/dL (70-99); Phosphorus, Blood 2.9 mg/dL (2.5-4.9); Potassium, Blood 3.1 mmol/L (3.5-5.5); Sodium, Blood 145 mmol/L (136-145)
[2023-05-02 11:30] VITALS: BP 132/58
--- NOTE | 2023-05-02 15:48 | NUR ---
SHIFT SUMMARY: POD 6 BOWEL RESECTION NO SIGNIFICANT CHANGES. PATIENT CONTINUES TO HAVE A 1:1 SITTER DUE TO IMPULSIVENESS/CONFUSION BUT IS EASILY REDIRECTED. PAIN IS MANAGED WITH PO PAIN MEDICATION BUT NOT TYLENOL SINCE "IT MAKES ME NAUSEOUS" PER PATIENT. PATIENT WAS SLIGHTLY NAUSEOUS THIS MORNING BUT WAS MANAGED WITH PO ZOFRAN. PATIENT HAS A MEDIPORE DRESSING OVER HER ABD MIDLINE INCISION WITH HOLLY THAT IS C/D/I. PATIENT DOES HAVE A BLISTER IN HER UMBILICUS BUT DR. STUBBS STATED IT WAS DUE TO THE DESTINI DRESSING THAT WAS OVER IT. HER BLISTER IS ALSO COVERED WITH THE MEDIPORE DRESSING THAT IS ALSO C/D/I. PATIENT IS TOLERATING SMALL AMOUNTS OF PO INTAKE. PATIENT MUST BE ENCOURAGED TO EAT/DRINK AND NOT BE GIVEN TOO MANY OPTIONS TO EAT OR ELSE SHE GETS "OVERWHELMED" PER PATIENT. PATIENT IS A SBA TO THE BSC OR CHAIR. PATIENT IS LAYING IN THE RECLINER CHAIR WITH CALL LIGHT IN REACH.
[2023-05-02 19:26] VITALS: BP 111/68
[2023-05-03 03:51] VITALS: BP 137/65
[2023-05-03 05:10] LABS: Calcium, Blood 8.5 mg/dL (8.5-10.1); Creatinine, Blood 0.58 mg/dL (0.40-1.00); Potassium, Blood 3.1 mmol/L (3.5-5.5)
--- NOTE | 2023-05-03 05:42 | NUR ---
SHIFT SUMMARY POD 7 FOR BOWEL RESECTION. PT CONTINUES TO BECOME MORE ALERT AND COGNITIVELY STABLE THIS NIGHT. MEDIPORE DRESSING C/D/I AND ABD BINDER IN PLACE. PT ADVANCED TO FL DIET AND TOLERATED ICE CREAM WELL. @0400 PT MEDICATED W/ MARTHA 1X FOR 7/10 PAIN TO ABD/ BACK, W/ RELIEF AND BACK TO SLEEP. NO ACUTE CHANGES THIS SHIFT. CALL LIGHT W/ IN REACH AND BED ALARM SET.
[2023-05-03 07:14] VITALS: BP 134/66
[2023-05-03] MEDS ORDERED: OXYC5 PO (10:40)
[2023-05-03] MEDS ORDERED: Acetaminophen650 M1 PO (10:40)
--- NOTE | 2023-05-03 13:19 | NUR ---
TELEPHONE CALL TO SURGEON DR STUBBS - RELAYED PT HAS HAD 2 BMs TODAY AND HOSPITALIST PUT IN DC ORDER AND PT MAY BE DC'D IF SURGEON AGREES. DR STUBBS OKAYS DC TODAY.
[2023-05-03 14:21] VITALS: BP 96/72
--- NOTE | 2023-05-03 15:10 | NUR ---
DISCHARGE SUMMARY PT A&OX4, VSS/RA, SUSI PO, VOIDING/BMs, AMBULATING INDEPENDENTLY/DRESSED SELF/ADLS, PAIN MANAGED, NO IV. DC INS PROVIDED. PT REP UNDERSTANDING THOSE INSTRUCTIONS. LEFT FLOOR VIA WC WITH PIN INSERTER TO GO HOME WITH SON, WITH ALL PERSONAL POSSESSIONS INCLUDING DC PACKET AND 1 NARC SCRIPT.
== END 2023-05-03 15:05 | disposition home health service (06) | DRG 329 ==
LOC: SURS 06:12 → PRE IP 07:30 → SURS 13:46
PROVIDERS: Family Medicine; Internal Medicine; ADMIT Surgery
PROC: 0DBP0ZZ Excision of Rectum, Open Approach (ICD-10-PCS; 2023-04-27)
PROC: 0DBN0ZZ Excision of Sigmoid Colon, Open Approach (ICD-10-PCS; principal; 2023-04-27 07:30)
DX: K63.89 Other specified diseases of intestine (principal); G92.8 Other toxic encephalopathy; K57.32 Diverticulitis of large intestine without perforation or abscess without bleeding; K56.609 Unspecified intestinal obstruction, unspecified as to partial versus complete obstruction; T42.75XA Adverse effect of unspecified antiepileptic and sedative-hypnotic drugs, initial encounter; K63.5 Polyp of colon; F32.A Depression, unspecified; M19.90 Unspecified osteoarthritis, unspecified site; J44.9 Chronic obstructive pulmonary disease, unspecified; F41.9 Anxiety disorder, unspecified; K29.70 Gastritis, unspecified, without bleeding; F12.90 Cannabis use, unspecified, uncomplicated; D63.8 Anemia in other chronic diseases classified elsewhere; R06.89 Other abnormalities of breathing; E88.09 Other disorders of plasma-protein metabolism, not elsewhere classified; E83.39 Other disorders of phosphorus metabolism; E87.6 Hypokalemia; R53.81 Other malaise; E66.01 Morbid (severe) obesity due to excess calories; Z90.49 Acquired absence of other specified parts of digestive tract; Z90.710 Acquired absence of both cervix and uterus; Z99.81 Dependence on supplemental oxygen; Z98.51 Tubal ligation status; Z98.890 Other specified postprocedural states; Z79.899 Other long term (current) drug therapy; Z79.891 Long term (current) use of opiate analgesic; Z88.5 Allergy status to narcotic agent; Z88.8 Allergy status to other drugs, medicaments and biological substances; Z87.891 Personal history of nicotine dependence; Z68.31 Body mass index [BMI] 31.0-31.9, adult
CPT/HCPCS: 36415; 80048; 80069; 81001; 82803; 83735; 84100; 84439; 84443; 85025; 86850; 86900; 86901; 87086; 88305; 94640; 94664; 94760; 94762; 97110; 97161; A9270; J0461; J0690; J1100; J1170; J1630; J1650; J2060; J2250; J2371; J2405; J2704; J3010; J7060; J7120

== ENCOUNTER 2024-04-10 13:45 | Emergency (ER) | payer MEDICARE ==
[~2024-04-10] VITALS: Ht 167.6 cm; Wt 95.2 kg
[~2024-04-10 13:45] MED LIST changes: +ALBU90OI; +Acetaminophen650 M1 PO; +CLONAZEPAM0.5 MG PO; +METR500 PO; +NEOM500 PO; +OXYC5 PO; +Prednisone20 MG PO; +SLEEP PO; +SYMBICORT 16010.2 GM; +Ventolin5 MG/1 ML; +[UNRECOGNIZED DRUG - OTHER] PO
[2024-04-10] MEDS ORDERED: Ipratropium/Albuterol SulF 2.5-0.5MG/3 ML Amp INH ONE (15:00)
[2024-04-10] MEDS ORDERED: NS 1,000 ML IV SCH (15:00)
[2024-04-10 15:29] LABS: BASOPHILS ABSOLUTE AUTO 0.06 K/mm3 (0.00-0.23); BASOPHILS PERCENT AUTO 1 % (0-2); EOSINOPHILS ABSOLUTE AUTO 0.19 K/mm3 (0.00-0.68); EOSINOPHILS PERCENT AUTO 2 % (0-6); Hematocrit 43.3 % (33.0-51.0); Hemoglobin 14.1 g/dL (11.5-16.0); IMMATURE GRAN ABSOLUTE AUTO 0.07 K/mm3 (0.00-0.10); IMMATURE GRAN PERCENT AUTO 1 % (0-1); LYMPHOCYTES ABSOLUTE AUTO 3.17 K/mm3 (0.84-5.20); LYMPHOCYTES PERCENT AUTO 26 % (21-46); MONOCYTES ABSOLUTE AUTO 0.78 K/mm3 (0.16-1.47); MONOCYTES PERCENT AUTO 6 % (4-13); Mean Corpuscular HGB 32.2 pg (26.0-34.0); Mean Corpuscular HGB Conc 32.6 g/dL (31.5-36.5); Mean Corpuscular Volume 99 fL (80-100); NEUTROPHILS ABSOLUTE AUTO 8.04 K/mm3 (1.96-9.15); NEUTROPHILS PERCENT AUTO 65 % (41-73); Platelet Count 290 K/mm3 (150-400); RDW Coefficient Variation 11.9 % (11.7-14.2); RDW Standard Deviation 43.3 fL (35.1-46.3); Red Blood Cell Count 4.38 M/mm3 (3.80-5.20); White Blood Cell Count 12.31 K/mm3 (4.00-11.30)
[2024-04-10] MEDS ORDERED: Acetaminophen 325 MG TABLET PO ONE (15:35)
[2024-04-10 15:54] LABS: Influenza A, PCR NEGATIVE (NEGATIVE); Influenza B, PCR NEGATIVE (NEGATIVE); Resp Syncytial Virus, PCR NEGATIVE (NEGATIVE); SARS-Cov-2 (COVID-19) PCR, MMC NEGATIVE (NEGATIVE)
[2024-04-10 15:54] LABS: Albumin, Blood 3.5 g/dL (3.4-5.0); Albumin/Globulin Ratio 0.9 (0.8-1.8); Bilirubin, Total 0.5 mg/dL (0.1-1.0); Bun/Creatinine Ratio 33.6 (12.0-20.0); Calcium, Blood 8.6 mg/dL (8.5-10.1); Creatinine, Blood 0.54 mg/dL (0.40-1.00); Globulin, Blood 3.7 g/dL (2.2-4.0); Potassium, Blood 4.1 mmol/L (3.5-5.5); Total Protein, Blood 7.2 g/dL (6.4-8.2)
[2024-04-10] MEDS ORDERED: CLIMARA1 EACH TOP (16:43)
[2024-04-10] MEDS ORDERED: IBUP200 PO (16:43)
[2024-04-10 16:44] VITALS: BP 128/84
[2024-04-10] MEDS ORDERED: PredniSONE 20 MG Tab PO ONE (17:30)
[2024-04-10] MEDS ORDERED: Albuterol 2.5 MG/3 ML VIAL INH ONE (17:30)
== END 2024-04-10 18:00 | disposition home or self-care (01) ==
LOC: ER 13:45
PROVIDERS: Emergency Medicine
DX: S62.627A Displaced fracture of middle phalanx of left little finger, initial encounter for closed fracture (principal); J44.9 Chronic obstructive pulmonary disease, unspecified; W19.XXXA Unspecified fall, initial encounter; Z88.8 Allergy status to other drugs, medicaments and biological substances; Z88.5 Allergy status to narcotic agent; Z79.899 Other long term (current) drug therapy; Z79.52 Long term (current) use of systemic steroids; F17.200 Nicotine dependence, unspecified, uncomplicated
CPT/HCPCS: 0241U; 70450; 71045; 73120; 80053; 83880; 84484; 85025; 94640; 94664; A9270; J7030; J7512